=== PATIENT | female | born 1960 | race African-American/Black ===

== ENCOUNTER 2021-07-07 04:24 | Inpatient (IN) | payer OTHER ==
[2021-07-07] VITALS (9 sets, daily range): BP systolic 134–172; BP diastolic 84–100
[~2021-07-07] VITALS: Ht 167.6 cm; Wt 91.3 kg
[2021-07-07 05:12] LABS: BG BASE EXCESS -10.5 mmol/L (-2.0-2.0); BG CARBOXYHEMOGLOBIN 2.1 % (0.5-1.5); BG DEOXYHEMOGLOBIN 0.2 % (0.0-5.0); BG FRACTION INSPIRED OXYGEN 100; BG HCO3 ACT 18.2 mmol/L (22.0-26.0); BG METHEMOGLOBIN 0.6 % (0.0-1.5); BG OXYGEN SATURATION 99.8 % (92.0-98.5); BG OXYHEMOGLOBIN 97.1 % (94.0-97.0); BG PCO2 50.6 mmHg (35.0-45.0); BG PH 7.173 (7.350-7.450); BG PO2 361.1 mmHg (75.0-100.0); BG SAMPLE SITE RIGHT RADIAL; BG TOTAL HEMOGLOBIN 15.8 g/dL (12.0-18.0); BG VENT MODE MASK - NRB
[2021-07-07 05:34] LABS: BASOPHILS % 0.8 % (0.0-2.0); EOSINOPHILS % 0.8 % (0.0-5.0); HEMATOCRIT. 50.9 % (36.0-48.0); HEMOGLOBIN. 15.3 g/dL (12.0-16.0); LYMPHOCYTES % 61.8 % (20.0-50.0); MEAN CORPUSCULAR HEMOGLOBIN 22.5 pg (28.0-32.0); MEAN PLATELET VOLUME 9.6 fl (7.4-10.4); NEUTROPHILS % 25.6 % (40.0-76.0); PLATELET 222 x1000/uL (130-400); RED BLOOD CELL COUNT 6.79 mill/uL (4.2-5.4); RED CELL DISTRIBUTION WIDTH 15.8 % (11.6-14.6)
[2021-07-07 06:12] LABS: CHLORIDE 113 mEq/L (98-107)
[2021-07-07 06:16] LABS: ETHANOL BLOOD < 10 mg/dL
[2021-07-07] MEDS ORDERED: FUROSEMIDE 40MG/4ML VIAL IVP ONE (07:00)
[2021-07-07] MEDS ORDERED: GUAIFENESIN 200MG/10ML SUGAR FREE UDC PO PRN (09:30)
[2021-07-07] MEDS ORDERED: NITROGLYCERIN 0.4MG TABLET SL SL PRN (09:30)
[2021-07-07] MEDS ORDERED: MAGNESIUM/ALUMINUM HYDROXIDE/SIMETHICONE 30ML UDC PO PRN (09:30)
[2021-07-07] MEDS ORDERED: ACETAMINOPHEN 325MG TABLET PO PRN (09:30)
[2021-07-07] MEDS ORDERED: IPRATROPIUM/ALBUTEROL 0.5-3(2.5)MG/3ML NEB NEB PRN (09:30)
[2021-07-07] MEDS ORDERED: ONDANSETRON HCL 4MG/2ML INJ IV PRN (09:30)
[2021-07-07] MEDS ORDERED: CLONIDINE 0.1MG TABLET PO PRN (09:30)
[2021-07-07] MEDS ORDERED: ZOLPIDEM TARTRATE 5MG TABLET PO PRN (09:30)
[2021-07-07] MEDS ORDERED: DOCUSATE SODIUM 100MG CAPSULE PO PRN (09:30)
[2021-07-07] MEDS: FAMOTIDINE 20MG TABLET PO SCH ×2 (10:00→20:46)
[2021-07-07] MEDS ORDERED: KCL 20MEQ/100ML PREMIX 100 ML IV SCH (10:00)
[2021-07-07] MEDS ORDERED: ENOXAPARIN 40MG/0.4ML SYR SUBCUT SCH (10:00)
[2021-07-07] MEDS ORDERED: POTASSIUM CHLORIDE 20MEQ TABLET SR PO SCH (10:00)
[2021-07-07] MEDS: GUAIFENESIN/DM 600MG/30MG ER TAB 12HR PO SCH ×2 (11:06→20:46)
[2021-07-07] MEDS: ASPIRIN 325MG EC TABLET PO SCH (11:06)
[2021-07-07] MEDS: ASCORBIC ACID 500 MG TABLET PO SCH ×2 (11:06→20:46)
[2021-07-07] MEDS: SPIRONOLACTONE 25MG TABLET PO SCH ×2 (11:07→20:46)
[2021-07-07] MEDS: ZINC SULFATE 220 MG ( 50 ) CAPSULE PO SCH (11:07)
[2021-07-07] MEDS: CHOLECALCIFEROL (D3) 1000 UNIT TABLET PO SCH (11:07)
[2021-07-07] MEDS: LISINOPRIL 20MG TABLET PO SCH ×2 (11:10→20:47)
[2021-07-07 16:32] LABS: CREATINE KINASE MB FRACTION 1.8 ng/mL (0.5-3.6)
[2021-07-07 16:42] LABS: FOLIC ACID (FOLATE) SERUM 5.5 ng/mL (>5.38)
[2021-07-07] MEDS: METHYLPREDNISOLONE SOD SUCC 125 MG/2 ML VIAL IV SCH ×2 (17:22→23:43)
[2021-07-07] MEDS: FUROSEMIDE 40MG/4ML VIAL IVP SCH (17:22)
[2021-07-07] MEDS: LEVOFLOXACIN 750MG PREMIX 150 ML IV SCH (18:02)
[2021-07-07] MEDS: ENOXAPARIN 30MG/0.3ML SYR SUBCUT SCH (20:48)
[2021-07-07] MEDS: IPRATROPIUM/ALBUTEROL 0.5-3(2.5)MG/3ML NEB HHN SCH (20:58)
[2021-07-08] VITALS (12 sets, daily range): BP systolic 124–180; BP diastolic 63–95
[2021-07-08 00:07] LABS: CREATINE KINASE MB FRACTION 1.6 ng/mL (0.5-3.6)
[2021-07-08] MEDS: IPRATROPIUM/ALBUTEROL 0.5-3(2.5)MG/3ML NEB HHN SCH ×5 (00:51→21:59)
[2021-07-08 02:12] LABS: CLARITY URINE CLEAR (CLEAR); COLOR URINE YELLOW (YELLOW); KETONES URINE NEGATIVE (NEGATIVE); LEUKOCYTE ESTERASE URINE TRACE (NEGATIVE); NITRITE URINE NEGATIVE (NEGATIVE); OCCULT BLOOD URINE NEGATIVE (NEGATIVE); PH URINE 6.5 (4.5-8.0); PROTEIN URINE NEGATIVE (NEGATIVE); SPECIFIC GRAVITY URINE 1.011 (1.005-1.030); UROBILINOGEN URINE 0.2 E.U./dL (0.2-1.0)
[2021-07-08 02:25] LABS: *AMPHETAMINES SCREEN URINE NEGATIVE (NEGATIVE); *BARBITURATES SCREEN URINE NEGATIVE (NEGATIVE); *BENZODIAZEPINES SCREEN URINE NEGATIVE (NEGATIVE); *COCAINE SCREEN URINE PRESUMTIVE POSITIVE (NEGATIVE); CANNABINOID URINE SCREEN NEGATIVE (NEGATIVE); METHADONE URINE SCREEN NEGATIVE (NEGATIVE); OPIATES URINE SCREEN PRESUMTIVE POSITIVE (NEGATIVE); PHENCYCLIDINE URINE SCREEN NEGATIVE (NEGATIVE)
[2021-07-08] MEDS: FUROSEMIDE 40MG/4ML VIAL IVP SCH ×2 (06:22→17:30)
[2021-07-08] MEDS: METHYLPREDNISOLONE SOD SUCC 125 MG/2 ML VIAL IV SCH ×3 (06:22→21:40)
[2021-07-08 07:22] LABS: BASOPHILS % 0.3 % (0.0-2.0); HEMATOCRIT. 49.1 % (36.0-48.0); HEMOGLOBIN. 15.7 g/dL (12.0-16.0); LYMPHOCYTES % 21.9 % (20.0-50.0); MEAN CORPUSCULAR HEMOGLOBIN 22.5 pg (28.0-32.0); MEAN CORPUSCULAR VOLUME 70.5 fL (81.0-99.0); MEAN PLATELET VOLUME 9.5 fl (7.4-10.4); MONOCYTES % 1.9 % (2.0-8.0); NEUTROPHILS % 75.9 % (40.0-76.0); PLATELET 200 x1000/uL (130-400); RED BLOOD CELL COUNT 6.97 mill/uL (4.2-5.4); RED CELL DISTRIBUTION WIDTH 14.9 % (11.6-14.6)
[2021-07-08 07:33] LABS: CHLORIDE 108 mEq/L (98-107)
[2021-07-08] MEDS: ASPIRIN 325MG EC TABLET PO SCH (09:43)
[2021-07-08] MEDS: ASCORBIC ACID 500 MG TABLET PO SCH ×2 (09:43→20:21)
[2021-07-08] MEDS: GUAIFENESIN/DM 600MG/30MG ER TAB 12HR PO SCH ×2 (09:43→20:20)
[2021-07-08] MEDS: FAMOTIDINE 20MG TABLET PO SCH ×2 (09:43→20:20)
[2021-07-08] MEDS: CHOLECALCIFEROL (D3) 1000 UNIT TABLET PO SCH (09:43)
[2021-07-08] MEDS: SPIRONOLACTONE 25MG TABLET PO SCH ×2 (09:44→20:22)
[2021-07-08] MEDS: ENOXAPARIN 30MG/0.3ML SYR SUBCUT SCH ×2 (09:45→20:21)
[2021-07-08] MEDS: LISINOPRIL 20MG TABLET PO SCH ×2 (09:45→20:22)
[2021-07-08] MEDS: ZINC SULFATE 220 MG ( 50 ) CAPSULE PO SCH (09:47)
[2021-07-08] MEDS: LEVOFLOXACIN 750MG PREMIX 150 ML IV SCH (17:30)
[2021-07-09] VITALS (12 sets, daily range): BP systolic 117–149; BP diastolic 57–97
[2021-07-09] MEDS: IPRATROPIUM/ALBUTEROL 0.5-3(2.5)MG/3ML NEB HHN SCH ×6 (00:54→21:01)
[2021-07-09] MEDS: METHYLPREDNISOLONE SOD SUCC 125 MG/2 ML VIAL IV SCH ×3 (05:26→22:00)
[2021-07-09] MEDS: FUROSEMIDE 40MG/4ML VIAL IVP SCH ×2 (05:26→17:09)
[2021-07-09] MEDS: KETOROLAC 15MG/ML VIAL IV PRN ×2 (05:35→21:59)
[2021-07-09] MEDS: ZINC SULFATE 220 MG ( 50 ) CAPSULE PO SCH (09:03)
[2021-07-09] MEDS: GUAIFENESIN/DM 600MG/30MG ER TAB 12HR PO SCH ×2 (09:03→20:49)
[2021-07-09] MEDS: ASPIRIN 325MG EC TABLET PO SCH (09:04)
[2021-07-09] MEDS: SPIRONOLACTONE 25MG TABLET PO SCH ×2 (09:04→20:50)
[2021-07-09] MEDS: ASCORBIC ACID 500 MG TABLET PO SCH ×2 (09:05→20:50)
[2021-07-09] MEDS: LISINOPRIL 20MG TABLET PO SCH ×2 (09:05→20:50)
[2021-07-09] MEDS: FAMOTIDINE 20MG TABLET PO SCH ×2 (09:05→20:49)
[2021-07-09] MEDS: CHOLECALCIFEROL (D3) 1000 UNIT TABLET PO SCH (09:05)
[2021-07-09] MEDS: ENOXAPARIN 30MG/0.3ML SYR SUBCUT SCH ×2 (09:06→20:51)
[2021-07-09] MEDS: SUCRALFATE 1 G/10 ML UDC PO SCH ×3 (11:50→20:50)
[2021-07-09] MEDS: ACETAMINOPHEN 325MG TABLET PO PRN (16:00)
[2021-07-09] MEDS: LEVOFLOXACIN 750MG PREMIX 150 ML IV SCH (17:10)
[2021-07-10] VITALS (12 sets, daily range): BP systolic 111–140; BP diastolic 65–101
[2021-07-10] MEDS: IPRATROPIUM/ALBUTEROL 0.5-3(2.5)MG/3ML NEB HHN SCH ×4 (05:10→16:25)
[2021-07-10] MEDS: FUROSEMIDE 40MG/4ML VIAL IVP SCH ×2 (05:31→17:39)
[2021-07-10] MEDS: METHYLPREDNISOLONE SOD SUCC 125 MG/2 ML VIAL IV SCH ×3 (05:31→21:04)
[2021-07-10] MEDS: SUCRALFATE 1 G/10 ML UDC PO SCH ×4 (05:31→21:03)
[2021-07-10] MEDS: KETOROLAC 15MG/ML VIAL IV PRN (06:24)
[2021-07-10] MEDS: FAMOTIDINE 20MG TABLET PO SCH ×2 (08:23→21:02)
[2021-07-10] MEDS: GUAIFENESIN/DM 600MG/30MG ER TAB 12HR PO SCH ×2 (08:23→21:02)
[2021-07-10] MEDS: ZINC SULFATE 220 MG ( 50 ) CAPSULE PO SCH (08:24)
[2021-07-10] MEDS: CHOLECALCIFEROL (D3) 1000 UNIT TABLET PO SCH (08:24)
[2021-07-10] MEDS: ASPIRIN 325MG EC TABLET PO SCH (08:24)
[2021-07-10] MEDS: LISINOPRIL 20MG TABLET PO SCH ×2 (08:24→21:03)
[2021-07-10] MEDS: SPIRONOLACTONE 25MG TABLET PO SCH ×2 (08:24→21:03)
[2021-07-10] MEDS: ENOXAPARIN 30MG/0.3ML SYR SUBCUT SCH ×2 (08:25→21:04)
[2021-07-10] MEDS: ASCORBIC ACID 500 MG TABLET PO SCH ×2 (08:25→21:02)
[2021-07-10] MEDS: ACETAMINOPHEN 325MG TABLET PO PRN (08:33)
[2021-07-10] MEDS ORDERED: LEVOFLOXACIN 250MG TABLET PO SCH (15:00)
[2021-07-11] VITALS (8 sets, daily range): BP systolic 110–133; BP diastolic 61–87
[2021-07-11] MEDS: METHYLPREDNISOLONE SOD SUCC 125 MG/2 ML VIAL IV SCH (06:36)
[2021-07-11] MEDS: SUCRALFATE 1 G/10 ML UDC PO SCH (06:36)
[2021-07-11] MEDS: FUROSEMIDE 40MG/4ML VIAL IVP SCH (06:36)
[2021-07-11] MEDS: IPRATROPIUM/ALBUTEROL 0.5-3(2.5)MG/3ML NEB HHN SCH (08:39)
[2021-07-11] MEDS: ZINC SULFATE 220 MG ( 50 ) CAPSULE PO SCH (09:12)
[2021-07-11] MEDS: SPIRONOLACTONE 25MG TABLET PO SCH (09:12)
[2021-07-11] MEDS: ENOXAPARIN 30MG/0.3ML SYR SUBCUT SCH (09:13)
[2021-07-11] MEDS: ASPIRIN 325MG EC TABLET PO SCH (09:13)
[2021-07-11] MEDS: LISINOPRIL 20MG TABLET PO SCH (09:13)
[2021-07-11] MEDS: ASCORBIC ACID 500 MG TABLET PO SCH (09:13)
[2021-07-11] MEDS: CHOLECALCIFEROL (D3) 1000 UNIT TABLET PO SCH (09:13)
[2021-07-11] MEDS: GUAIFENESIN/DM 600MG/30MG ER TAB 12HR PO SCH (09:13)
[2021-07-11] MEDS: FAMOTIDINE 20MG TABLET PO SCH (09:13)
== END 2021-07-11 12:08 | disposition home or self-care (01) | DRG 194 ==
LOC: EDBD 04:40 → ER 04:40 → 3WST 06:42 → EDBEDREQ 06:46 → ENRESERV 07:20 → 3WST 10:33
PROVIDERS: ADMIT Internal Medicine; ATTEND Internal Medicine
PROC: 5A09357 Assistance with Respiratory Ventilation, Less than 24 Consecutive Hours, Continuous Positive Airway Pressure (ICD-10-PCS; principal; 2021-07-07)
PROC: 5A09357 Assistance with Respiratory Ventilation, Less than 24 Consecutive Hours, Continuous Positive Airway Pressure (ICD-10-PCS; 2021-07-08)
DX: I11.0 Hypertensive heart disease with heart failure (principal); J96.01 Acute respiratory failure with hypoxia; J96.02 Acute respiratory failure with hypercapnia; E44.0 Moderate protein-calorie malnutrition; J44.1 Chronic obstructive pulmonary disease with (acute) exacerbation; Z20.822 Contact with and (suspected) exposure to COVID-19; I50.43 Acute on chronic combined systolic (congestive) and diastolic (congestive) heart failure; E78.00 Pure hypercholesterolemia, unspecified; E87.6 Hypokalemia; F14.10 Cocaine abuse, uncomplicated; Z79.899 Other long term (current) drug therapy
CPT/HCPCS: 36415; 36600; 71045; 80053; 80061; 80305; 80320; 81003; 82375; 82550; 82553; 82607; 82746; 82805; 83036; 83540; 83550; 83735; 83880; 84100; 84145; 84484; 85025; 87426; 87493; 93005; 93306; 93970; 94640; 94660; 99291; J1650; J1885; J1940; J1956; J2930; J3480; G0480